=== PATIENT | male | born 1995 | race Two or more races ===

== ENCOUNTER 2019-06-11 21:23 | Emergency (ER) | payer MEDICAID, OTHER ==
[~2019-06-11] VITALS: Ht 177.8 cm; Wt 74.8 kg
[2019-06-11 21:51] VITALS: BP 131/77
[2019-06-11 22:11] LABS: Basophils # (auto) 0 uL; Basophils % (auto) 0.5 % (0.0-2.0); Eosinophils # (auto) 0 uL; Eosinophils % (auto) 0.4 % (0.0-7.0); Hematocrit 46.5 % (41.0-53.0); Hemoglobin 15.8 g/dL (13.5-17.5); Lymphocytes # (auto) 2.2 uL; Lymphocytes % (auto) 24.9 % (10.0-50.0); Mean Corpuscular Hemoglobin 30.5 pg (28.0-32.0); Mean Corpuscular Hgb Conc. 33.9 g/dL (32.0-36.0); Mean Corpuscular Volume 89.9 fL (80.0-100.0); Monocytes # (auto) 0.4 uL; Monocytes % (auto) 4.2 % (0.0-12.0); Neutrophils # (auto) 6.1 uL; Nucleated Red Blood Cells % 0.1 %; Platelet Count (auto) 256 10^3/uL (140-450); Red Blood Cells 5.17 10^6/uL (4.5-5.90); Red Cell Distribution Width 13.3 % (11.8-14.3); White Blood Cell 8.7 10^3/uL (4.4-10.8)
[2019-06-11 22:29] LABS: Albumin 4.7 g/dL (3.4-5.0); Calcium 9.2 mg/dL (8.5-10.1); Potassium 3.5 mmol/L (3.5-5.1)
[2019-06-11 22:33] LABS: BUN/Creatinine Ratio 18.4; Bilirubin, Total 0.6 mg/dL (0.2-1.0); Total Protein 8.2 g/dL (6.4-8.2)
== END 2019-06-11 23:43 | disposition home or self-care (01) ==
LOC: ER 21:25
DX: B34.9 Viral infection, unspecified (principal)
CPT/HCPCS: 36415; 80053; 85025; 87804

== ENCOUNTER 2024-12-18 17:45 | Emergency (ER) | payer MEDICAID ==
[~2024-12-18] VITALS: Ht 175.3 cm; Wt 93.1 kg
[2024-12-18 18:47] LABS: Hematocrit 45.8 % (41.0-53.0); Hemoglobin 15.9 g/dL (13.5-17.5); Mean Corpuscular Hemoglobin 30.0 pg (28.0-32.0); Mean Corpuscular Volume 86.5 fL (80.0-100.0); Nucleated Red Blood Cells % 0.0 %
[2024-12-18 18:53] LABS: Chloride 103 mmol/L (98-107); Potassium 4.2 mmol/L (3.5-5.1); Sodium 139 mmol/L (136-145)
--- NOTE | 2024-12-18 18:53 | DVH ---
CHEST RADIOGRAPH Indication: cp Technique: Single frontal view of the chest was obtained Comparison: None FINDINGS: Lines and Tubes: None Lungs: No focal consolidation. Pleura: No effusion. No pneumothorax. Cardiomediastinal contours: Unremarkable Bones: No acute osseous abnormality. IMPRESSION: 1. No acute cardiopulmonary disease.
[2024-12-18 18:54] LABS: Anion Gap 10 (5-15); Calcium 10.0 mg/dL (8.7-10.4); Carbon Dioxide 26 mmol/L (20-31)
[2024-12-18 18:59] LABS: BUN/Creatinine Ratio 16.7 (10.0-20.0); Blood Urea Nitrogen 16 mg/dL (9-23); Glucose 85 mg/dL (74-106)
--- NOTE | 2024-12-18 20:41 | ED.PDOC ---
HPI Comments 29 y.o male presents to the ED for a chief complaint of chest pain that started today while at work around 1600. Patient describes pain as sharp/stabbing, presented on the left side radiating across the chest, associated with numbness and tingling in his extremities. He states the pain lasted around 2 hours, and has now resolved. He denies any current symptoms. Patient mentions having chest pain in the past, which was correlated with low potassium and chest cramps and has been taking oral potassium for years. Patient mentions his chest pain episode was worse that previous ones which prompt him to come into the ED. He denies any other associating symptoms. Denies medical history or allergies. Chief Complaint: Chest Pain Time Seen by MD: 20:35 Primary Care Provider: NONE Reviewed Notes: Nurses Notes, Medications, Allergies Allergies: Coded Allergies: NO KNOWN ALLERGIES (Unverified , 09/09/12) Information Source: Patient Mode of Arrival: Ambulatory Severity: Moderate Timing: Hours Duration: Since onset Location: Substernal Quality: Sharp Onset: At Rest Cardiac Risk Factors: None PE Risk Factors: None History of: Similar pain in past, None Modifying Factors: Nothing Associated Signs and Symptoms: None Past Medical History Past Medical History (Other): Hypokalemia Surgical History: Denies all surgeries Family History Family History: Reviewed,noncontributory to illness, No family hx of Heart shellie Social History Smoker: Non-Smoker Alcohol: Denies ETOH Use Drugs: Denies Drug Use Lives In: Home Constitutional: denies: chills, diaphoresis, fatigue, fever, malaise, sweats, weakness, others EENTM: denies: blurred vision, double vision, ear bleeding, ear discharge, ear drainage, ear pain, ear ringing, eye pain, eye redness, hearing loss, mouth pain, mouth swelling, nasal discharge, nose bleeding, nose congestion, nose pain, photophobia, tearing, throat pain, throat swelling, voice changes, others Respiratory: denies: cough, hemoptysis, orthopnea, SOB at rest, shortness of breath, SOB with excertion, stridor, wheezing, others Cardiovascular: reports: chest pain; denies: dizzy spells, diaphoresis, Dyspnea on exertion, edema, irregular heart beat, left arm pain, lightheadedness, p alpitations, PND, syncope, others Gastrointestinal: denies: abdomen distended, abdominal pain, blood streaked bowels, constipated, diarrhea, dysphagia, difficulty swallowing, hematemesis, melena, nausea, poor appetite, poor fluid intake, rectal bleeding, rectal pain, vomiting, others Genitourinary: denies: burning, dysuria, flank pain, frequency, hematuria, incontinence, penile discharge, penile sore, pain, testicle pain, testicle swelling, urgency, others Neurological: denies: dizziness, fainting, headache, left sided numbness, left sided weakness, numbness, paresthesia, pre-existing deficit, right sided numbness, right sided weakness, seizure, speech problems, tingling, tremors, weakness, others Musculoskeletal: denies: back pain, gout, joint pain, joint swelling, muscle pain, muscle stiffness, neck pain, others Integumetry: denies: bruises, change in color, change in hair/nails, dryness, laceration, lesions, lumps, rash, wounds, others Allergic/Immunocompromised: denies: Difficulty Healing, Frequent Infections, Hives, Itching, others Hematologic/Lymphatic: denies: anemia, blood clots, easy bleeding, easy b ruising, swollen glands, others Endocrine: denies: excessive hunger, excessive sweating, excessive thirst, excessive urination, flushing, intolerance to cold, intolerance to heat, unexplained weight gain, unexplained weight loss, others Psychiatric: denies: anxiety, bipolar disorder, depression, hopeless, panic disorder, schizophrenia, sleepless, suicidal, others All Other Systems: Reviewed and Negative Physical Exam General Appearance: No Apparent Distress HEENT: Other (Pupils and face symmetric. Moist mucous membranes.) Neck: Full Range of Motion, Normal Inspection Respiratory: Lungs Clear, No Accessory Muscle Use, No Respiratory Distress, Normal Breath Sounds Cardiovascular: No Edema, No JVD, Regular Rate/Rhythm Breast Exam: Deferred Gastrointestinal: Non Tender, Soft Genitalia: Deferred Pelvic: Deferred Rectal: Deferred Extremities: Normal inspection, Normal range of motion, Non-tender, No pedal edema Neurologic: Alert (Oriented x4), Normal Affect, Normal Mood, Other (Ambulatory) Cerebellar Function: NOT DONE Reflexes: NOT DONE Skin: Dry, Normal Color, Warm Lymphatic: NOT DONE EKG EKG : Comments Sinus rhythm, rate 61, normal intervals, normal axis, normal QRS, no ST/T change . Was a procedure done? Was a procedure done?: No CP Differential Dx Differential Diagnosis: Anxiety / Panic Attack, PA, Pulmonary Embolus Differential Diagnosis: CHF Differential Diagnosis: Angina, Chest Wall Pain, Costochondritis, Esophageal reflux/spasm, Gastritis, Pericarditis, Pneumonia X-Ray, Labs, Meds, VS Vital Signs Date Time Temp Pulse Resp B/P (MAP) Pulse Ox O2 Delivery O2 Flow Rate FiO2 12/18/24 17:55 61 12/18/24 17:47 98.4 68 16 122/82 97 98.4 Lab Test 12/18/24 19:42 12/18/24 18:23 Range/Units Troponin I High Sensitivity < 3 L < 3 L </=54 ng/L White Blood Count 6.7 4.4-10.8 10^3/uL Red Blood Count 5.30 4.5-5.90 10^6/uL Hemoglobin 15.9 13.5-17.5 g/dL Hematocrit 45.8 41.0-53.0 % Mean Corpuscular Volume 86.5 80.0-100.0 fL Mean Corpuscular Hemoglobin 30.0 28.0-32.0 pg Mean Corpuscular Hemoglobin Concent 34.6 32.0-36.0 g/dL Red Cell Distribution Width 12.6 11.8-14.3 % Platelet Count 245 140-450 10^3/uL Mean Platelet Volume 10.0 6.9-10.8 fL Neutrophils (%) (Auto) 62.1 37.0-80.0 % Lymphocytes (%) (Auto) 30.6 10.0-50.0 % Monocytes (%) (Auto) 5.3 0.0-12.0 % Eosinophils (%) (Auto) 1.2 0.0-7.0 % Basophils (%) (Auto) 0.8 0.0-2.0 % Neutrophils # (Auto) 4.2 1.6-8.6 10 ^3/uL Lymphocytes # (Auto) 2.1 0.4-5.4 10 ^3/uL Monocytes # (Auto) 0.4 0-1.3 10 ^3/uL Eosinophils # (Auto) 0.1 0-0.8 10 ^3/uL Basophils # (Auto) 0.1 0-0.2 10 ^3/uL Nucleated Red Blood Cells 0.0 % D-Dimer, Quantitative < 0.19 0.0-0.49 mg/L FEU Sodium Level 139 136-145 mmol/L Potassium Level 4.2 3.5-5.1 mmol/L Chloride Level 103 98-107 mmol/L Carbon Dioxide Level 26 20-31 mmol/L Anion Gap 10 5-15 Blood Urea Nitrogen 16 9-23 mg/dL Creatinine 0.96 0.700-1.30 mg/dL Glomerular Filtration Rate Calc 108 >90 mL/min BUN/Creatinine Ratio 16.7 10.0-20.0 Serum Glucose 85 74-106 mg/dL Calcium Level 10.0 8.7-10.4 mg/dL B-Type Natriuretic Peptide 4.19 0-100 pg/mL PROCEDURE(s): CXRP - CHEST PORTABLE REASON: cp ORDER NUMBER(s): [id number], ACCESSION NUMBER(s): [id number] CHEST RADIOGRAPH Indication: cp Technique: Single frontal view of the chest was obtained Comparison: None FINDINGS: Lines and Tubes: None Lungs: No focal consolidation. Pleura: No effusion. No pneumothorax. Cardiomediastinal contours: Unremarkable Bones: No acute osseous abnormality. IMPRESSION: 1. No acute cardiopulmonary disease. X-Ray, Labs, Meds, VS Comment 39-year-old male with a history of hypokalemia complaining of chest pain and numbness/tingling of his extremities, resolved prior to my evaluation Vitals unremarkable Exam unremarkable Rhythm strip independently interpreted by me: Sinus rhythm, rate 61, no ectopy. Chest x-ray unremarkable CBC, basic metabolic panel, BNP, troponin, D-dimer unremarkable Acute treatment indicated in the ED. Patient was asymptomatic on re-evaluation. Patient appears stable for discharge with close outpatient follow-up with his primary physician. Time of 1ST Reevaluation: 20:41 Reevaluation 1ST: Unchanged Patient Education/Counseling: Diagnosis, Treatment, Prognosis, Need For Follow Up Family Education/Counseling: Diagnosis, Treatment, Prognosis SEPSIS Sepsis Screen Date sepsis recognized/suspect: Dec 18, 2024 Time Sepsis recognized/suspect: 1750 Recent Procedure: No On Antibiotic Therapy: No Respiratory Rate >20: No Heart Rate >90: No Temp<36 C (96.8 F) or >38.3 C: No SBP <90 or MAP <65 mmHG: No New Acute Mental Status Change: No Is the patient on CPAP, BIPAP,: No Physician Orders Electrocardigram (12/18/24 17:54) Troponin-I Hs (12/18/24 20:54) Chest Portable (12/18/24 17:55) Vital Signs Date Time Temp Pulse Resp B/P (MAP) Pulse Ox O2 Delivery O2 Flow Rate FiO2 12/18/24 17:55 61 12/18/24 17:47 98.4 68 16 122/82 97 98.4 Laboratory Tests Test 12/18/24 18:23 White Blood Count 6.7 10^3/uL (4.4-10.8) Departure 1 Departure Time of Disposition: 20:58 Impression: Primary Impression: Chest pain with low risk for cardiac etiology Disposition: 01 HOME / SELF CARE / HOMELESS Condition: Stable Additional Instructions: Your blood tests, including screening test for heart attack, heart failure and blood clots, were unremarkable. Your chest x-ray was normal. Your EKG was normal. No medication is required at this time. Follow-up with your primary doctor in 1-2 days for re-evaluation. Return to ER for persistent or worsening symptoms. [place] [id number] Ph: [phone] DIAGNOSTIC IMAGING Diagnostic Imaging Report : [id number] Signed PATIENT: GLENROY ESCALANTE ACCT: [id number] UNIT: [id number] : 1995 LOC: ER ROOM / BED: / AGE / SEX: 29 / M ADM STATUS: REG ER SERVICE [id number] ORDERING PHYSICIAN: BRENNEN ALARCON MD PROCEDURE(s): CXRP - CHEST PORTABLE REASON: cp ORDER NUMBER(s): [id number], ACCESSION NUMBER(s): [id number] CHEST RADIOGRAPH Indication: cp Technique: Single frontal view of the chest was obtained Comparison: None FINDINGS: Lines and Tubes: None Lungs: No focal consolidation. Pleura: No effusion. No pneumothorax. Cardiomediastinal contours: Unremarkable Bones: No acute osseous abnormality. IMPRESSION: 1. No acute cardiopulmonary disease. Discharged With: Significant Other Critical Care Note Critical Care Time?: No Stability Stability form required: No Heart Score Heart Score: Heart Score Response (Comments) Value History Slightly Suspicious 0 EKG Normal 0 Age <45 0 Risk Factors No known risk factors 0 Troponin Normal limit 0 Total 0 I personally scribed for BRENNEN ALARCON MD ([email or web address]) on 12/18/24 at 20:41. Electronically submitted by Valencia Gutierrez ([facility]). BRENNEN ALARCON MD Dec 18, 2024 20:41
[2024-12-18 21:31] VITALS: BP 129/80; PULSE 72; RESP 16; TEMP 98.3; O2SAT 94
--- NOTE | 2024-12-19 11:13 | ECG ---
[facility] Test Date: 2024-12-18 Test Time: 17:55:11 Pat Name: GLENROY ESCALANTE Department: ED Room: Gender: M It Intern: gil : 1995 Requested By: BRENNEN GRIMM Order Number: [id number] Reading MD: Measurements Intervals [place] Rate: 61 P: 34 [place]: 153 QRS: 85 QRSD: 105 T: 17 QT: 405 QTc: 408 Interpretive Statements Sinus rhythm Please click the below link to view image of tracing.
== END 2024-12-18 21:38 | disposition home or self-care (01) ==
LOC: ER 17:45
DX: R07.89 Other chest pain (principal)
CPT/HCPCS: 36415; 71045; 80048; 83880; 84484; 85025; 85379; 93005